=== PATIENT | female | born 1955 | race Caucasian/White ===

== ENCOUNTER → 2017-07-29 | Day surgery (SDC) | payer BC ==
[~2017-07-29] VITALS: Ht 167.6 cm; Wt 60.0 kg
[~2017-07-29] MED LIST: CALC500T55 PO; CHLORHEXIDINE GLUCONATE 2 % 1 PACK (2 CLOTHS) TOPICAL PRN; CYAN1TAB24 PO; DEXAMETHASONE SOD PHOS 4 MG/ML VIAL ONE; FAMOTIDINE 20 MG/2 ML VIAL ONE; INSULIN HUMAN REGULAR 1,000 UNITS/10 ML VIAL SQ PRN; KETOROLAC TROMETHAMINE 30 MG/ML (IVP) VIAL ONE; LACTATED RINGER'S 1000 ML IV PRN; METOPROLOL TARTRATE 25 MG TAB PO PRN; MIDAZOLAM HCL 2 MG/2 ML VIAL ONE; ONDANSETRON HCL 4 MG/2 ML VIAL IV PUSH ONE; POVIDONE IODINE 5% (ANTISEPSIS KIT) 4 APPLICATIONS EACH NARE PRN; PROPOFOL 200 MG/20 ML AMP IV ONE; SODIUM CHLORID 0.9% 500 ML IV PRN; [UNRECOGNIZED DRUG - CODE] PO; ceFAZolin 1,000 MG/NS 100 ML IV SCH
[2017-07-29 07:04] LABS: HEMATOCRIT 37.1 % (35.0-46.0); MEAN CELL VOLUME 87.1 FL (80.0-100.0); MEAN CORPUSCULAR HEMOGLOBIN 29.9 PG (27.0-34.0); MEAN CORPUSCULAR HGB CONC 34.3 % (32.0-36.0); PLATELET COUNT 373 TH/MM3 (150-450); RED BLOOD COUNT 4.26 MIL/MM3 (4.00-5.30); RED CELL DISTRIBUTION WIDTH 13.4 % (11.6-17.2); REVIEW FLAG FINAL; WHITE BLOOD COUNT 4.9 TH/MM3 (4.0-11.0)
--- NOTE | 2017-07-29 08:27 | PD.OP ---
Operative Report Date of Surgery: Jul 29, 2017 Preoperative Diagnosis: (1) PMB (postmenopausal bleeding) (2) Stenosis of cervix Postoperative Diagnosis: (1) Stenosis of cervix (2) PMB (postmenopausal bleeding) Procedure: Indications: [-]This 61 y/o patient has had episodes of post-menopausal bleeding despite normal ultrasound, normal endometrial biopsy and normal pap smear. Findings: Patient was found on hysteroscopic view to have [-no visible lesion in the endocervical canal nor the endometrial cavity ] confirmed to be removed by repeat hysteroscopy post dilation and curettage. Procedure: Patient was brought to the OR and laid supine on the table. After inducing general anesthesia she was positioned in low stirrups in dorso- lithotomy position. An open-sided speculum was placed in the vagina after Betadine prep and time out. The anterior lip of the cervix was grasped with a single tooth tenaculum, and the cervix was dilated to accept a standard rigid hysteroscope. Endocervical curettage was performed with scant tissue obtained. The uterus sounded to 7 cm. Using saline as distention media the endometrial cavity was seen completely with normal atrophic endometrium and no polyps. The endometrium was the thoroughly sampled using a medium sharp curet. Again, scant tissue returned. The procedure being complete, the instruments were removed, the patient was replaced supine and she was awakened. She was transferred to the PACU breathing on her own in stable condition. Sponge, needle, and instrument counts were correct. Anesthesia: Kiera/Akanksha [employer]ADEMIC ADVISING DIRECTOR LMA Surgeon: Qing Huynh Physician Support Coordinator(s): n/a Resident Surgeon: Qing Banda MD Jul 29, 2017 08:27
[2017-07-29 10:00] VITALS: BP 117/75; PULSE 68; RESP 16; TEMP 98.2; O2SAT 97
--- NOTE | 2017-07-29 13:42 | EKG ---
Date Performed: 07/29/2017 Time Performed: 07:02:01 PTAGE: 61 years EKG: Sinus rhythm NORMAL ECG NO PREVIOUS TRACING DOCTOR: Natan Daniel Interpretating Date/Time 07/29/2017 13:38:54
== END | disposition home or self-care (01) ==
LOC: PHSDC 06:10
PROVIDERS: ATTEND Obstetrics & Gynecology
DX: N95.0 Postmenopausal bleeding (principal); N88.2 Stricture and stenosis of cervix uteri; Z01.810 Encounter for preprocedural cardiovascular examination; Z85.3 Personal history of malignant neoplasm of breast; Z90.13 Acquired absence of bilateral breasts and nipples
CPT/HCPCS: 00952; 36415; 58558; 85027; 88305; 93005; J0690; J1100; J1885; J2250; J2405; J3010; J7120